=== PATIENT | female | born 1950 | race Caucasian/White ===

== ENCOUNTER → 2021-06-19 | Outpatient (CLI) | payer MEDICARE | END | disposition home or self-care (01) | LOC: LABPAT 09:09 | PROVIDERS: ATTEND Orthopaedic Surgery Orthopaedic Surgery of the Spine | DX: Z01.812 Encounter for preprocedural laboratory examination (principal); M43.10 Spondylolisthesis, site unspecified | CPT/HCPCS: 86850; 86900; 86901; 87070 ==

== ENCOUNTER 2021-07-01 06:22 | Inpatient (IN) | payer MEDICARE ==
[2021-06-27 15:57] VITALS: BMI 29.2
[~2021-07-01 06:22] MED LIST: LIDOCAINE 1% (10MG/ML) FOR IV START INTRADERMA PRN; ceFAZolin 1,000 MG in SODIUM CHLORIDE 0.9% IRRIGATIO 1,000 ML IRRIGATION PRN
[2021-07-01] MEDS ORDERED: ONDANSETRON 4 MG/2 ML VIAL ONE (06:53)
[2021-07-01] MEDS: LACTATED RINGERS 1,000 ML IV SCH (07:00)
[2021-07-01 07:10] LABS: Glucose,Whole Blood 146 mg/dL (75-99)
[2021-07-01] MEDS ORDERED: PROPOFOL 10 MG/ML 20 ML VIAL IV ONE (07:39)
[2021-07-01] MEDS ORDERED: LIDOCAINE 1% INJ 10MG/ML (20 ML MDV) ONE (07:39)
[2021-07-01] MEDS ORDERED: HYDROmorphone (PF) 1 MG/ML ONE (07:39)
[2021-07-01] MEDS ORDERED: fentaNYL (PF) 50 MCG/ML 2 ML AMP ONE (07:39)
[2021-07-01] MEDS ORDERED: NEOSTIGMINE 1 MG/ML 10 ML VIAL ONE (07:39)
[2021-07-01] MEDS ORDERED: ROCURONIUM 10 MG/ML (5 ML VIAL) IV ONE (07:39)
[2021-07-01] MEDS ORDERED: PHENYLEPHRINE-0.9% NACL SYG 1,000 MCG/10 ML SYRINGE ONE (07:39)
[2021-07-01] MEDS ORDERED: HEPARIN SODIUM,PORCINE 10,000 UNIT/ML 1 ML VIAL ONE (07:39)
[2021-07-01] MEDS ORDERED: KETAMINE 10 MG/ML 20 ML VIAL ONE (07:39)
[2021-07-01] MEDS ORDERED: SUCCINYLCHOLINE CHLORIDE 100 MG/5 ML SYR IV ONE (07:39)
[2021-07-01] MEDS ORDERED: GLYCOPYRROLATE 0.2 MG/ML 2 ML VIAL ONE (07:39)
[2021-07-01] MEDS ORDERED: MIDAZOLAM 2 MG/2 ML VIAL ONE (07:39)
[2021-07-01] MEDS ORDERED: SODIUM CHLORIDE 0.9% IRRIG 1,000 ML BTL IRRIGATION ONE (07:39)
[2021-07-01] MEDS ORDERED: GELATIN SPONGE,ABSORB (LARGE) 1 EACH SPONGE MISCELLANE ONE (08:10)
[2021-07-01] MEDS ORDERED: THROMBIN (BOVINE) 5,000 UNIT VIAL TOPICAL ONE (08:11)
[2021-07-01] MEDS ORDERED: BUPIVACAINE (PF) 0.25% 30 ML VIAL SQ ONE ×2 (08:11)
[2021-07-01] MEDS ORDERED: LACTATED RINGERS 1,000 ML IV ONE ×2 (11:28→14:12)
--- NOTE | 2021-07-01 11:37 | FL ---
EXAMINATION TYPE: FL guidance operating room DATE OF EXAM: 07/01/2021 HISTORY: Fluoroscopy time 23 seconds of fluoroscopy provided. IMPRESSION: 1. Fluoroscopy time.
--- NOTE | 2021-07-01 11:38 | XR ---
EXAM TYPE: LUMBAR SPINE X RAY SERIES COMPARISON: NONE HISTORY: Surgical change TECHNIQUE: 2 views are submitted. FINDINGS: Images are limited by resolution. There is postsurgical change involving the lower lumbar spine which appears in near-anatomic alignment. IMPRESSION: 1. Postoperative change
[2021-07-01] MEDS ORDERED: SENNOSIDES-DOCUSATE SODIUM 1 EACH TAB PO PRN (11:52)
[2021-07-01] MEDS ORDERED: ACETAMINOPHEN TAB 325 MG TAB PO PRN (11:52)
[2021-07-01] MEDS ORDERED: MAGNESIUM HYDROXIDE 2,400 MG/10 ML CUP PO PRN ×2 (11:52)
[2021-07-01] MEDS ORDERED: ONDANSETRON 4 MG/2 ML VIAL IVP PRN (11:52)
[2021-07-01] MEDS: HYDROmorphone 0.5 MG/0.5 ML SYRINGE IVP PRN ×6 (12:02→23:02)
--- NOTE | 2021-07-01 12:02 | P.OP ---
Date of Procedure: 07/01/21 Preoperative Diagnosis: Spondylolisthesis L3 4 L4 5, recurrent stenosis L4 5, low back pain, lower extremity radiculopathy, lower extremity weakness, history of lumbar laminectomy L4 5 Postoperative Diagnosis: Same Anesthesia: GETA Pathology: none sent Condition: stable Disposition: PACU Description of Procedure: DESCRIPTION OF PROCEDURE(S): BRIEF OPERATIVE NOTE Preoperative Diagnosis: Spondylolisthesis L3 4 L4 5, recurrent stenosis L4 5, low back pain, lower extremity radiculopathy, lower extremity weakness, history of lumbar laminectomy L4 5, low back pain Postoperative Diagnosis: Same Procedure: Revision Laminectomy and decompression L4 5 Laminectomy decompression L3 [address] navigation aided Minimally invasive Posterior lateral decompression and facet fusion L3 4 and L4 5 Minimally invasive Transforaminal lumbar interbody fusion for a 360 fusion L3 4 L4 5 Discectomy for decompression L3 4 and L4 5 Placement of interbody graft L3 4 and L4 5 Use of computer navigation for fusion L3 4 and 5 Local autogenous bone grafting Aspiration of bone marrow from the vertebral body pedicle at L3 on the right Use of bone graft extenders Surgeon: Dr. Marcos Optical [employer] Silverer: Castro Juarez. who is present throughout the entire the case persistence during positioning, dissection, exposure, visualization, and all crucial elements of the case as well as closure. Anesthesia: General anesthesia per Estimated blood loss: Approximately 350 mL, with 120 given back to Cell Saver Complications: None apparent Components implanted: K2M minimally invasive [place] pedicle screw system withscrews measuring 6.5 mm in diameter to rods one [place] interbody cage along with 1 expandable interbody cage and with 10 mL of osteo amp bio4 bone graft substitute and 30 mL of the BX bone fibers to supplement the local autogenous bone graft and bone marrow aspirate Disposition: To recovery room in good stable condition. OPERATIVE INDICATIONS The patient has had severe issues at their lower extremity in her lower back over the past several years. She had been found have significant and severe stenosis L4 5 in the past underwent laminectomy decompression and discectomy L4 5 with good improvement of her lower extremity symptoms. However over the past year she's been having some increased symptoms at her low back and lower extremities with significant worsening over the past several months. Over the past few months the patient had pain at their back and their lower extremities. The patient is having severe radicular symptoms at their lower extremity with weakness. The patient is having significant pain in their back. They are unable to obtain any comfort. We did aggressive conservative treatment with medications therapy and interventional pain management however thery were not having any relief. The patient also showed evidence of a listhesis with some dynamic instability at both L3 4 and L4 5. She is on to have recurrent stenosis at L4 5 and stenosis L3 4 as well. The patient has been through conservative treatment. We discussed various treatment options including surgery, and the patient wishes to proceed with surgery We discussed the risk, patient's alternatives and benefits of surgery including but not limited to, risk of bleeding risk of infection, risk of need for further surgery, risk of decreased, loss of motion, muscle function, malunion nonunion, hardware failure, nerve damage, paralysis, heart attack, blindness and . They understood issues with the current pandemic and the possibility of exposure. OPERATIVE SUMMARY After discussing all the risks, patient alternatives and benefits at length, the patient elected to proceed with surgical intervention, signed informed consent, and presented for their procedure. The patient was seen and examined in the preoperative holding area and the surgical site was marked. The patient was given antibiotics and brought to the operating room. The patient was sedated and intubated by anesthesia in standard fashion. The patient was positioned on to the operating room table in a prone position on the appropriate frame which was well-padded and well molded. We were careful to pad any bony prominences and pressure points. We were careful to maintain the patient's cervical spine and good neutral alignment and position throughout. The patient was prepped and draped in a normal standard fashion. An appropriate timeout and keystone protocol performed. We were able to proceed with the surgery. The local wound area was infiltrated with local anesthetic. Over the right iliac crest I was able to make small stab incisions and establish a guidepin screw fixation to the iliac crest 2. I was able place the computer referencing device over the guidepins to establish an appropriate reference point for the Ziem CT navigation. We then were able to place patient in an appropriate drape and do a navigation spin for visualization and 3-D reconstruction of the lumbar spine. I was able utilize C-arm guidance and navigation to establish appropriate position over the pedicles bilaterally at the appropriate levels . With the appropriate levels confirmed was able to make small incisions over the appropriate pedicle sites bilaterally at L3 4 and 5. Utilizing the computer navigation device I was able to establish bony landmarks at the right iliac crest for a bony reference point for the navigation device. I was able to establish a Jamshidi needle over the lateral aspect of the pedicle and advanced the trocar into the pedicle being careful not to breech superiorly inferiorly medially or laterally using computer navigation device. Position was confirmed regularly with AP and lateral images on C-arm and with the computer navigation device at the appropriate levels bilaterally. I was able to establish the trocar into the pedicle appropriately into the posterior aspect of the vertebral body bilaterally at the appropriate levels. This was done at each of the pedicle positions and each of the vertebrae at L3 4 and 5. At the superior vertebrae at L3 I was able to take approximately 25 mL of bone aspiration for use later in the case to supplement the allograft and autograft bone. I was able place the guidewire into the trocar and into the vertebral body appropriately under C-arm guidance. Dissection was taken down over the wire to the appropriate starting position for the screw placed. The appropriate length screw was chosen, threaded over the guidewire and screwed appropriately into the pedicle and vertebral body under C-arm guidance in excellent alignment and position with good bony purchase. This is done at each of the screw sites at the appropriate level at L3 4 and 5. With the screws intact I extended the incision to connect the screw hole sites on the most symptomatic side on the left. I dissected down to establish access over the pars and lamina to the base of the spinous process. I was able to expose the facet joint. The capsule the facet was taken down and showed some facet arthrosis at the joint. I was able to use a combination of curettes and Kerrison rongeurs and a high-speed drill to take down the facet joint and do a facetectomy. At L45 I was able to perform a revision decompression. At L3 4 performed a laminectomy decompression. I was able get excellent foraminal decompression and central decompression with undermining across midline to perform a laminectomy centrally and contralaterally. As able get good central decompression. The ligamentum flavum was taken down to further decompress centrally and at bilateral neural foramen. I was able to expose the disc space and visualize the traversing nerve root. Note was made of some disc protrusion and disc herniation that was abutting the traversing nerve root at the level causing further compression of the nerve root. I was able to establish a annulotomy at the appropriate level first at L4 5 than at L3 4 protecting soft tissue and neural structures. Note was made of some disc desiccation at the disc. I performed a complete discectomy with accommodation of curettes and rasps and scrapers. I was able get good endplate preparation at the disc space. I sized for the appropriate size interbody spacer protecting the soft tissue and neural structures. The wound was copiously irrigated and suctioned dry. There is no evidence of any dural tear or leak. I was able to pack the disc space with local autogenous bone graft as well as a small amount of bone graft which was also placed into the interbody cage itself. Protecting the soft tissue structures and neural structures I was able place the interbody cage in good alignment and good position with good fit and fill at the interbody space. Position was confirmed with C-arm guidance. Good hemostasis maintained. There is no evidence of any dural tear or leak. The wound was irrigated and suctioned dry. With the hardware intact, intraoperative C-arm imaging was again taken which showed good alignment and position of the hardware at the appropriate levels at L3 4 and 5. We were then able to measure, contour and place the rods and appropriate hardware bilaterally. I was able to place capcrews, tighten them down, and torque them with the torque screwdriver appropriately. With this intact I was able to place the local autogenous bone graft with additional bone graft enhancer as necessary into the posterior lateral gutters over the decorticated transverse processes and facet joints on the contralateral side. The remainder of the bone graft was placed over the facet joint on the cont ralateral side after taking down the facet joint capsule. With the bone graft intact, a stable construct, and good decompression at the appropriate levels, we were able to proceed with closure. Good hemostasis was maintained. There is no evidence of dural tear or leak. The fascia was closed for a watertight closure. he subcuticular tissue was closed with absorbable suture. The wound was cleaned and dried and dressed with the appropriate dressing. The drapes were broken down. The patient was gently rolled back onto their hospital bed being careful to maintain their cervical spine and good neutral alignment and position. They were woken up by anesthesia, extubated, and brought to the recovery room in good stable condition. The patient will be admitted to the hospital for appropriate postoperative care, medical management and monitoring. We will continue to follow them closely about the postoperative course.
[2021-07-01] MEDS: CYCLOBENZAPRINE 10 MG TAB PO PRN ×2 (16:05→21:53)
[2021-07-01] MEDS: SODIUM CHLORIDE 0.9% 1,000 ML IV SCH (17:25)
[2021-07-01] MEDS: HYDROcodone/APAP 5-325MG 1 EACH TAB PO PRN (20:38)
[2021-07-01] MEDS: ATORVASTATIN 10 MG TAB PO SCH (20:38)
[2021-07-01] MEDS: CIPROFLOXACIN HCL 500 MG TAB PO SCH (20:38)
[2021-07-02] MEDS: HYDROcodone/APAP 5-325MG 1 EACH TAB PO PRN ×5 (01:03→21:49)
[2021-07-02] MEDS: BENZOCAINE/MENTHOL LOZENG 1 EACH LOZENGE MUCOUS MEM PRN ×2 (01:03→09:27)
[2021-07-02] MEDS: SODIUM CHLORIDE 0.9% 1,000 ML IV SCH ×2 (02:10→14:56)
[2021-07-02] MEDS: LACTATED RINGERS 1,000 ML IV SCH (02:11)
[2021-07-02] MEDS: CYCLOBENZAPRINE 10 MG TAB PO PRN ×3 (04:18→21:49)
[2021-07-02] MEDS: LEVOTHYROXINE 50 MCG TAB PO SCH (05:32)
[2021-07-02] MEDS: SENNOSIDES-DOCUSATE SODIUM 1 EACH TAB PO SCH (08:42)
[2021-07-02] MEDS: CIPROFLOXACIN HCL 500 MG TAB PO SCH (08:43)
[2021-07-02] MEDS: ASPIRIN 81 MG PO SCH (08:44)
[2021-07-02 08:52] VITALS: RESP 18
--- NOTE | 2021-07-02 09:27 | P.PN ---
Progress Note - Text Progress Note Date: 07/02/21 Postoperative day #1 Patient is seen and examined today at bedside. The patient has some pain around the surgical site as expected. Pain is being controlled with medication. She had a little bit of nausea yesterday but that seems to be resolving as she was able to tolerate her breakfast this morning. She still has her De Leon in. She says her legs are feeling good but she is having some pain at her back as expected but also at her lower abdomen. Physical Exam Afebrile with stable vital signs Abdomen is soft nontender. Chest has good excursion deep and space expiration The incision site is clean dry and intact. No erythema there is no purulence. The dressing is clear. Extremities have not had neurologic change from prior to surgery. She has sustained dorsal flexion plantar flexion and EHL intact. Calves and thighs were soft nontender without evidence of DVT. Assessment/Plan Postoperative day #1 status post minimally invasive decompression and fusion L3 4 L4 5 for her spondylolisthesis with spinal stenosis and lower extremity radiculopathy Patient is progressing as expected from the surgery. I think that her nausea has resolved as she has been able to tolerate her breakfast well this morning. We will continue to increase the patient's mobilization with therapy. We will remove her De Leon today and start getting her up out of bed. We will continue pain control with oral or IV medications. We'll continue to follow patient closely. Hopefully she'll be okay for increasing her mobilization and potentially going home tomorrow or .
[2021-07-02] MEDS: HYDROmorphone 0.5 MG/0.5 ML SYRINGE IVP PRN ×2 (09:50→16:54)
--- NOTE | 2021-07-02 11:06 | P.CONS ---
History of Present Illness - Reason for Consult Tachycardia - History of Present Illness Patient is a pleasant 71-year-old the female admitted for elective decompression and fusion of L3-4 and L4-5. Patient was passing gas patient is still having significant pain in the back denied any fever chills nausea vomiting patient is on ciprofloxacin received a 6 the doses of Cipro as an outpatient for E. coli urinary tract infection as per the patient. Patient completed this therapy and IV antibiotics will be discontinued. REVIEW OF SYSTEMS: CONSTITUTIONAL: No fever, no malaise, no fatigue. HEENT: No recent visual problems or hearing problems. Denied any sore throat. CARDIOVASCULAR: No chest pain, orthopnea, PND, no palpitations, no syncope. PULMONARY: No shortness of breath, no cough, no hemoptysis. GASTROINTESTINAL: No diarrhea, no nausea, no vomiting, no abdominal pain. NEUROLOGICAL: No headaches, no weakness, no numbness. HEMATOLOGICAL: Denies any bleeding or petechiae. GENITOURINARY: Denies any burning micturition, frequency, or urgency. MUSCULOSKELETAL/RHEUMATOLOGICAL as mentioned in HPI ENDOCRINE: Denies any polyuria or polydipsia. The rest of the 14-point review of systems is negative. PHYSICAL EXAMINATION: GENERAL: The patient is alert and oriented x3, not in any acute distress. Well developed, well nourished. HEENT: Pupils are round and equally reacting to light. EOMI. No scleral icterus. No conjunctival pallor. Normocephalic, atraumatic. No pharyngeal erythema. No thyromegaly. CARDIOVASCULAR: S1 and S2 present. No murmurs, rubs, or gallops. PULMONARY: Chest is clear to auscultation, no wheezing or crackles. ABDOMEN: Soft, nontender, nondistended, normoactive bowel sounds. No palpable organomegaly. MUSCULOSKELETAL: Deferred to orthopedic surgery EXTREMITIES: No cyanosis, clubbing, or pedal edema. NEUROLOGICAL: Gross neurological examination did not reveal any focal deficits. SKIN: No rashes. Assessment and plan -Sinus tach cardia: Seconded to pain will just monitor for now -Hyperthyroidism continue with levothyroxine and TSH will be obtained. -UTI completed antibiotic therapy antiemetics will be discontinued at this time -Lumbar laminectomy and decompression surgery pain management as per primary service DVT prophylaxis: As per primary service Past Medical History Past Medical History: Diabetes Mellitus, Hyperlipidemia, Musculoskeletal Disorder, Osteoarthritis (OA), Thyroid Disorder Additional Past Medical History / Comment(s): [id number] diet History of Any Multi-Drug Resistant Organisms: None Reported Past Surgical History: Back Surgery, Hysterectomy, Orthopedic Surgery, Tonsillectomy Additional Past Surgical History / Comment(s): bunionectomy right big toe, lipoma removed from arm Past Anesthesia/Blood Transfusion Reactions: No Reported Reaction Smoking Status: Never smoker - Past Family History Sister(s) Family Medical History: Deep Vein Thrombosis (DVT) Medications and Allergies Home Medications Medication Instructions Recorded Confirmed Type Acetaminophen [Tylenol] 650 mg PO Q4-6H PRN 06/27/21 06/27/21 History Aspirin 81 mg PO DAILY 06/27/21 06/27/21 History Levothyroxine Sodium [Synthroid] 50 mcg PO DAILY 06/27/21 06/27/21 History [place](Unknown Dose) 1 tab PO BID PRN 06/27/21 History Simvastatin [Zocor] 20 mg PO HS 06/27/21 06/27/21 History Ciprofloxacin HCl [Cipro] 500 mg PO BID 07/01/21 07/01/21 History Allergies Allergy/AdvReac Type Severity Reaction Status Date / Time codeine AdvReac jittery Verified 06/27/21 15:16 Physical Exam Vitals: Vital Signs Temp Pulse Resp BP Pulse Ox 07/02/21 08:00 98.3 F 106 H 18 107/51 91 L 07/02/21 01:20 99.0 F 109 H 107/57 94 L 07/01/21 20:38 95 16 07/01/21 20:03 98.6 F 95 119/60 94 L 07/01/21 16:39 99.3 F 85 16 134/65 94 L 07/01/21 15:28 66 16 125/60 97 07/01/21 15:07 69 16 124/59 96 07/01/21 14:30 54 L 16 122/54 99 07/01/21 14:15 52 L 16 129/63 99 07/01/21 14:00 60 16 124/57 96 07/01/21 13:30 49 L 16 122/58 98 07/01/21 13:15 55 L 16 125/60 98 07/01/21 13:00 50 L 16 116/58 98 07/01/21 12:47 62 16 120/57 98 07/01/21 12:31 46 L 14 105/50 98 07/01/21 12:15 51 L 14 103/51 98 07/01/21 12:00 45 L 14 83/40 98 07/01/21 11:52 97.5 F L 51 L 14 93/52 98 Intake and Output 07/01/21 07/02/21 07/02/21 22:59 06:59 14:59 Output Total 200 1200 Balance -200 -1200 Output: Urine 200 1200 Other: Voiding Method Indwelling Catheter # Bowel Movements 0 Weight 74 kg
[2021-07-02 11:16] LABS: Basophils # (A) 0.01 X 10*3/uL (0.00-0.10); Basophils % (A) 0.2 %; Eosinophils # (A) 0 X 10*3/uL (0.04-0.35); Eosinophils % (A) 0 %; HCT 33.3 % (37.2-46.3); HGB 10.4 g/dL (12.0-15.0); Lymphocytes # (A) 0.98 X 10*3/uL (0.90-5.00); Lymphocytes % (A) 18.7 %; MCH 27.7 pg (27.0-32.0); MCHC 31.2 g/dL (32.0-37.0); MCV 88.6 fL (80.0-97.0); Mean Platelet Volume 11.5 fL (9.5-12.2); Monocytes % (A) 15.2 %; Neutrophils # (A) 3.44 X 10*3/uL (1.80-7.70); Neutrophils % (A) 65.5 %; Platelet Count 136 X 10*3/uL (140-440); RBC 3.76 X 10*6/uL (4.10-5.20); RDW 13.8 % (11.5-14.5); WBC 5.25 X 10*3/uL (4.50-10.00)
[2021-07-02 12:12] LABS: African American GFR (CKD) 85.7 (60.0-200.0); Anion Gap 10.8 mmol/L (4.00-12.00); BUN/Creat Ratio 19.2 Ratio (12.00-20.00); Blood Urea Nitrogen 15.4 mg/dL (9.0-27.0); Calcium 8.4 mg/dL (8.7-10.3); Carbon Dioxide 22.7 mmol/L (21.6-31.8)
[2021-07-02 20:08] LABS: Glucose,Whole Blood 228 mg/dL (75-99)
[2021-07-02] MEDS: ATORVASTATIN 10 MG TAB PO SCH (21:49)
[2021-07-03] MEDS: HYDROmorphone 0.5 MG/0.5 ML SYRINGE IVP PRN ×3 (00:54→09:49)
[2021-07-03] MEDS: BENZOCAINE/MENTHOL LOZENG 1 EACH LOZENGE MUCOUS MEM PRN (01:18)
[2021-07-03] MEDS: HYDROcodone/APAP 5-325MG 1 EACH TAB PO PRN ×5 (02:15→22:29)
[2021-07-03] MEDS: SODIUM CHLORIDE 0.9% 1,000 ML IV SCH ×2 (05:40→14:57)
[2021-07-03] MEDS: LEVOTHYROXINE 50 MCG TAB PO SCH (06:10)
[2021-07-03] MEDS: CYCLOBENZAPRINE 10 MG TAB PO PRN ×3 (06:10→20:48)
[2021-07-03 06:55] LABS: Glucose,Whole Blood 153 mg/dL (75-99)
[2021-07-03] MEDS: SENNOSIDES-DOCUSATE SODIUM 1 EACH TAB PO SCH ×2 (07:02→07:04)
[2021-07-03] MEDS: ASPIRIN 81 MG PO SCH (07:03)
[2021-07-03] MEDS: LACTATED RINGERS 1,000 ML IV SCH (07:05)
[2021-07-03 11:34] LABS: Glucose,Whole Blood 174 mg/dL (75-99)
--- NOTE | 2021-07-03 14:27 | P.PN ---
Progress Note - Text Progress Note Date: 07/03/21 Orthopedic Spine: History of present illness: Patient is a pleasant 71-year-old female who is seen and examined at the bedside following posterior lateral decompression and fusion performed Thursday. Patient states they are doing ok postsurgically. She states she has been able to ambulate to the restroom. She has not been performing much other activities. She has been using a walker even ambulation. She has had difficulty with urination postoperatively. She did have some urinary retention and a De Leon catheter was placed this morning. Patient states she also feels she will need rehab at the time of discharge. She would like to be discharged to [facility]. We'll plan for consultation with social work for discharge planning to a rehabilitation facility in to see if his facility is available. We discussed we will have medicine manage her urinary retention. Currently does not complain of nausea, vomiting, fever, or chills. Patient states pain has been adequately controlled. Patient is eating without difficulty. She does con tinue to have some right-sided lower abdomen/groin pain but states it improves with massaging the area. This pain is not severe. She was treated for urinary tract infection in the outpatient setting as well. Physical Exam Lumbar Fusion: Status post surgical day number 2 Patient is awake, alert, and oriented 3 Vital signs stable Good chest excursion with deep inspiration and expiration Dorsiflexion, plantarflexion, and extensor hallucis longus positive sustained bilaterally No signs or symptoms of DVT; no calf pain; pneumatic cuffs intact bilateral lower extremities Optifoam dressings are clean, dry, and intact over the lumbar spine and right iliac crest; no erythema, purulence, or signs of infection Neurovascularly intact bilaterally lower extremities Assessment: Status post L3-4 and L4-5 minimally invasive posterior lateral decompression and fusion with transforaminal lumbar interbody fusion Low back pain Lower extremity radiculopathy Lower extremity weakness History of lumbar laminectomy Urinary tract infection treated in outpatient setting Urinary retention with De Leon catheter currently placed Hyperlipidemia Plan: 1. Ambulate as tolerated; work with Physical Therapy to increase mobilization 2. Continue pain control with IV and oral medications; will plan to begin weaning the patient off of IV narcotic medication in anticipation for discharge home in the next 1-2 days MAPS has been reviewed today, 09/02/2020, with an Overall Overdose Risk Score of 250. An "Opiod Start Talking" Form has been signed and placed in the patient's chart. A prescription has been written for [place] 5 mg/325 mg 1 tablet every 6 hours as needed for pain, dispensed #28. Patient should avoid anti-inflammatory medications next 6 weeks postoperatively. Patient is also given a prescription for baclofen 10 mg 1 tab 3 times a day as needed for muscle spasm, dispensed #60. These prescriptions have been placed in her chart. 3. Dressings to remain intact with Optifoam; patient may shower with dressings intact 4. Medical management can continue to manage patient for patient's other medical diagnoses including urinary retention 5. We will continue to follow the patient closely; depending on the patient's progress, we may plan for discharge home as early as tomorrow, 07/04/2021, to a rehabilitation facility. Patient is currently requesting [facility]. 6. Patient can follow-up with Chinmay iHnojosa PA-C or Dr. Koko Marcos at [facility] in 2-3 weeks following discharge
--- NOTE | 2021-07-03 15:54 | P.PN ---
Subjective Progress Note Date: 07/03/21 Patient is a pleasant 71-year-old the female admitted for elective decompression and fusion of L3-4 and L4-5. Patient was passing gas patient is still having significant pain in the back denied any fever chills nausea vomiting patient is on ciprofloxacin received a 6 the doses of Cipro as an outpatient for E. coli urinary tract infection as per the patient. Patient completed this therapy and IV antibiotics will be discontinued. 07/03/2021 Patient is resting in bed. She is status post op day #2 decompression and fusion of L3 to 4 and L4 to 5. Patient is passing gas or she's not had a bowel movement yet. She is still having some pain in her back, she denies any fever or chills nausea vomiting. T-max in the last 24 hours is 99.7, heart rate 100 sinus rhythm, blood pressure 139/62 inches 95% room air. Encourage ambulation, encourage incentive spirometry. Plans for discharge to rehab probably tomorrow from orthopedic services. ROS Constitutional: Denied any fatigue denied any fever. Cardio vascular: denied any chest pain, palpitations Gastrointestinal denied any nausea vomiting Pulmonary: Denied any shortness of breath cough Neurologic denied any new focal deficits All inpatient medications were reviewed and appropriate changes in these medications as dictated in the interval history and assessment and plan. PHYSICAL EXAMINATION: GENERAL: The patient is alert and oriented x3, not in any acute distress. Well developed, well nourished. HEENT: Pupils are round and equally reacting to light. EOMI. No scleral icterus. No conjunctival pallor. Normocephalic, atraumatic. No pharyngeal erythema. No thyromegaly. CARDIOVASCULAR: S1 and S2 present. No murmurs, rubs, or gallops. PULMONARY: Chest is clear to auscultation, no wheezing or crackles. ABDOMEN: Soft, nontender, nondistended, normoactive bowel sounds. No palpable organomegaly. MUSCULOSKELETAL: Deferred to orthopedic surgery EXTREMITIES: No cyanosis, clubbing, or pedal edema. NEUROLOGICAL: Gross neurological examination did not reveal any focal deficits. SKIN: No rashes. Assessment and plan -Sinus tachycardia: Seconded to pain will just monitor for now -Hyperthyroidism continue with levothyroxine and TSH will be obtained. -UTI completed antibiotic therapy -Lumbar laminectomy and decompression surgery pain management as per primary service DVT prophylaxis: As per primary service Repeat labs in the morning. Patient can be medically cleared for discharge to rehab once cleared by orthopedics. Objective - Vital Signs Vital signs: Vital Signs Temp 97.7 F 07/03/21 08:00 Pulse 100 07/03/21 08:00 Resp 18 07/03/21 08:00 BP 139/62 07/03/21 08:00 Pulse Ox 95 07/03/21 08:00 Intake & Output 07/02/21 07/03/21 07/03/21 18:59 06:59 18:59 Intake Total 480 Output Total 400 1325 700 Balance 80 -1325 -700 Intake: Oral 480 Output: Urine 400 125 700 Uretheral ([place]) 400 700 Post Void Residual 600 Other 600 Other: Voiding Method Toilet Toilet # Voids 2 # Bowel Movements 0 - Labs CBC & Chem 7: 07/02/21 05:53 07/02/21 05:53 Labs: Abnormal Lab Results - Last 24 Hours (Table) 07/02/21 07/03/21 07/03/21 Range/Units 20:02 06:53 11:32 POC Glucose (mg/dL) 228 H 153 H 174 H (75-99) mg/dL Assessment and Plan Time with Patient: Greater than 30
[2021-07-03 16:43] LABS: Glucose,Whole Blood 170 mg/dL (75-99)
[2021-07-03] MEDS ORDERED: TAMSULOSIN 0.4 MG CAP.ER.24H PO SCH (18:30)
[2021-07-03 20:29] LABS: Glucose,Whole Blood 241 mg/dL (75-99)
[2021-07-03] MEDS: ATORVASTATIN 10 MG TAB PO SCH (20:48)
[2021-07-04] MEDS: HYDROcodone/APAP 5-325MG 1 EACH TAB PO PRN ×3 (02:28→14:50)
[2021-07-04] MEDS: LEVOTHYROXINE 50 MCG TAB PO SCH (05:48)
[2021-07-04 06:12] LABS: African American GFR (CKD) >90 (>60 ml/min/1.73 sqM); Anion Gap 4 mmol/L; Blood Urea Nitrogen 12 mg/dL (7-17); Calcium 8.7 mg/dL (8.4-10.2); Carbon Dioxide 25 mmol/L (22-30); Chloride 106 mmol/L (98-107); Glucose 147 mg/dL (74-99); Non-African American GFR(CKD) >90 (>60 ml/min/1.73 sqM); Potassium 3.6 mmol/L (3.5-5.1); Sodium 135 mmol/L (137-145)
[2021-07-04 07:13] LABS: Glucose,Whole Blood 140 mg/dL (75-99)
[2021-07-04] MEDS ORDERED: Potassium Replacement Protocol 1 EACH MISC MISCELLANE PRN (07:28)
[2021-07-04] MEDS ORDERED: POTASSIUM CHLORIDE ER 20 MEQ TAB.ER PO SCH (08:00)
[2021-07-04 08:15] VITALS: BP 173/75; PULSE 115; TEMP 98.1
[2021-07-04] MEDS: LACTATED RINGERS 1,000 ML IV SCH (08:48)
[2021-07-04] MEDS: SODIUM CHLORIDE 0.9% 1,000 ML IV SCH (08:48)
[2021-07-04] MEDS: SENNOSIDES-DOCUSATE SODIUM 1 EACH TAB PO SCH (08:51)
[2021-07-04] MEDS: CYCLOBENZAPRINE 10 MG TAB PO PRN (08:51)
[2021-07-04] MEDS: ASPIRIN 81 MG PO SCH (08:52)
[2021-07-04 09:35] LABS: Basophils # (A) 0.02 X 10*3/uL (0.00-0.10); Basophils % (A) 0.4 %; Eosinophils # (A) 0.07 X 10*3/uL (0.04-0.35); Eosinophils % (A) 1.4 %; HCT 29.3 % (37.2-46.3); HGB 9.4 g/dL (12.0-15.0); Lymphocytes # (A) 1.45 X 10*3/uL (0.90-5.00); Lymphocytes % (A) 29.1 %; MCH 27.5 pg (27.0-32.0); MCHC 32.1 g/dL (32.0-37.0); MCV 85.7 fL (80.0-97.0); Mean Platelet Volume 11.6 fL (9.5-12.2); Monocytes # (A) 0.48 X 10*3/uL (0.20-1.00); Monocytes % (A) 9.6 %; Neutrophils # (A) 2.95 X 10*3/uL (1.80-7.70); Neutrophils % (A) 59.1 %; Platelet Count 146 X 10*3/uL (140-440); RBC 3.42 X 10*6/uL (4.10-5.20); RDW 13.7 % (11.5-14.5); WBC 4.99 X 10*3/uL (4.50-10.00)
--- NOTE | 2021-07-04 10:47 | P.DS ---
Providers Date of admission: 07/03/21 08:30 Attending physician: Yakelin Marcos Consults: 07/01/21 11:52 Consult Physician Routine Consulting Provider: Mike Rosales Consult Reason/Comments: Medical management Do you want consulting provider notified?: Yes Primary care physician: Ani Bauer, [facility] Hospital Course: The patient presented on the day of admission as per their operative note. She had spondylolisthesis with significant stenosis L3 4 L4 5 and underwent minimally invasive decompression fusion as per operative note. She is making steady progress postoperatively. She has been able to void and she is tolerating her diet. She is passing gas well and feels that she will have a bowel movement. She still having pain at her back particularly when changing positions which is expected. Physical Exam The incision site is clean dry and intact. There is no erythema no drainage. There is no purulence no evidence of infection. The dressings at her low back are clear without any evidence of drainage or bleeding. Abdomen soft and nontender. Chest has good excursion with deep inspiration and expiration. The patient has active and passive range of motion intact at the upper and lower extremities. There is no acute change in neurologic status. She has sustained dorsal flexion and flexion and extensor hallucis longus intact. Nontender. Hospital Course Postoperative day #3 status post minimally invasive decompression fusion L3 4 L4 5 for her spondylolisthesis with spinal stenosis and lower extremity radiculopathy The patient has been making good progress postoperatively. She had been moving somewhat slowly but she is making good progress today. She is voiding freely. They have completed the prophylactic antibiotics without any signs or symptoms of infection. The patient has been able to advance their diet, and is tolerating diet adequately. The pain was initially controlled with IV medications and is now controlled appropriately with oral medications. The patient has been able to increase their mobilization. The patient has progressed appropriately. I think they are in good stable condition for discharge today to group home facility. They're trying to arrange for [place] but there is limited availability and they may consider [place] as well. They will be sent home with appropriate prescriptions. I spoke with her over the phone as well. May had some concerns in regards to the patient missing out on therapy yesterday. She had been in too much pain when she was visited by the therapist and it was not able to return later. She is making good progress today with therapy despite this. I answered their questions to the best of my ability in a language that they can understand and they are agreeable with the plan. They will follow up as directed. Patient Condition at Discharge: Good Plan - Discharge Summary Discharge Rx Participant: No New Discharge Prescriptions: New Baclofen 10 mg PO TID PRN #60 tab PRN Reason: Spasms HYDROcodone/APAP 5-325MG [[place] 5] 1 each PO Q6HR PRN #28 tab PRN Reason: Pain No Action Simvastatin [Zocor] 20 mg PO HS Acetaminophen [Tylenol] 650 mg PO Q4-6H PRN PRN Reason: Pain Ciprofloxacin HCl [Cipro] 500 mg PO BID Levothyroxine Sodium [Synthroid] 50 mcg PO DAILY Aspirin 81 mg PO DAILY [place](Unknown Dose) 1 tab PO BID PRN PRN Reason: Pain Discharge Medication List Acetaminophen [Tylenol] 650 mg PO Q4-6H PRN 06/27/21 [History] Aspirin 81 mg PO DAILY 06/27/21 [History] Levothyroxine Sodium [Synthroid] 50 mcg PO DAILY 06/27/21 [History] [place](Unknown Dose) 1 tab PO BID PRN 06/27/21 [History] Simvastatin [Zocor] 20 mg PO HS 06/27/21 [History] Ciprofloxacin HCl [Cipro] 500 mg PO BID 07/01/21 [History] Baclofen 10 mg PO TID PRN #60 tab 07/03/21 [Rx] HYDROcodone/APAP 5-325MG [[place] 5] 1 each PO Q6HR PRN #28 tab 07/03/21 [Rx] Follow up Appointment(s)/Referral(s): Ani Bauer, [facility] [Primary Care Provider] - 1 Week Yakelin Marcos DO [Doctor of Osteopathic Medicine] - 07/16/21 2:00 pm Activity/Diet/Wound Care/Special Instructions: Keep site clean. May shower with waterproof Optifoam intact. Do not soak in a tub. After 72 hours postoperatively, patient May remove dressing and then may shower with area uncovered. Leave glue intact and allow it to fray off on its own. May ambulate as tolerated. Avoid heavy or rigorous activity. No repetitive bending twisting or lifting. No overhead work. Discharge Disposition: TRANSFER TO SNF/ECF
[2021-07-04 11:31] LABS: Glucose,Whole Blood 223 mg/dL (75-99)
--- NOTE | 2021-07-04 13:50 | P.PN ---
Subjective Progress Note Date: 07/04/21 Patient is a pleasant 71-year-old the female admitted for elective decompression and fusion of L3-4 and L4-5. Patient was passing gas patient is still having significant pain in the back denied any fever chills nausea vomiting patient is on ciprofloxacin received a 6 the doses of Cipro as an outpatient for E. coli urinary tract infection as per the patient. Patient completed this therapy and IV antibiotics will be discontinued. 07/03/2021 Patient is resting in bed. She is status post op day #2 decompression and fusion of L3 to 4 and L4 to 5. Patient is passing gas or she's not had a bowel movement yet. She is still having some pain in her back, she denies any fever or chills nausea vomiting. T-max in the last 24 hours is 99.7, heart rate 100 sinus rhythm, blood pressure 139/62 inches 95% room air. Encourage ambulation, encourage incentive spirometry. Plans for discharge to rehab probably tomorrow from orthopedic services. 07/04/2021 Patient evaluated today sitting in the chair. She states that she did have a bowel movement status post surgery. Urinary catheter was removed this morning and she is not retaining urine. She does have back pain. She is status postoperative day #3 decompression and fusion L3 to L4 and L4 to L5. Plan today is to go to rehab. Labs are unremarkable, TSH normal 1.020. Patient is still mildly tachycardia at 115, blood pressure 173/75 she is 93% on room air. We did add patient on Toprol-XL 12.5 mg by mouth daily, first dose now. Recheck blood pressure and heart rate. ROS Constitutional: Denied any fatigue denied any fever. Cardio vascular: denied any chest pain, palpitations Gastrointestinal denied any nausea vomiting Pulmonary: Denied any shortness of breath cough Neurologic denied any new focal deficits All inpatient medications were reviewed and appropriate changes in these medications as dictated in the interval history and assessment and plan. PHYSICAL EXAMINATION: GENERAL: The patient is alert and oriented x3, not in any acute distress. Well developed, well nourished. HEENT: Pupils are round and equally reacting to light. EOMI. No scleral icterus. No conjunctival pallor. Normocephalic, atraumatic. No pharyngeal erythema. No thyromegaly. CARDIOVASCULAR: S1 and S2 present. No murmurs, rubs, or gallops. PULMONARY: Chest is clear to auscultation, no wheezing or crackles. ABDOMEN: Soft, nontender, nondistended, normoactive bowel sounds. No palpable organomegaly. MUSCULOSKELETAL: Deferred to orthopedic surgery EXTREMITIES: No cyanosis, clubbing, or pedal edema. NEUROLOGICAL: Gross neurological examination did not reveal any focal deficits. SKIN: No rashes. Assessment and plan -Sinus tachycardia: Probably secondary to pain, we did start patient on a low dose of Toprol-XL 12.5 mg by mouth daily -Hypertension, could be due to pain, we decided patient would also Toprol-XL 12.5 mg po daily -Hyperthyroidism continue with levothyroxine, TSH within normal with a 1.020 -UTI completed antibiotic therapy -POD #3 Lumbar laminectomy and decompression surgery pain management as per primary service DVT prophylaxis: As per primary service Patient is cleared medically for discharge to rehab. Please give first dose of Toprol-XL now and recheck blood pressure and heart rate. Patient may not need this medication in the future, monitor for signs of bradycardia. If blood pressure normalizes this can be discontinued outpatient. Objective - Vital Signs Vital signs: Vital Signs Temp 98.1 F 07/04/21 08:00 Pulse 115 H 07/04/21 09:20 Resp 18 07/04/21 09:20 BP 173/75 07/04/21 08:00 Pulse Ox 93 L 07/04/21 08:00 Intake & Output 07/03/21 07/04/21 07/04/21 18:59 06:59 18:59 Output Total 1800 1850 200 Balance -1800 -1850 -200 Output: Urine 1800 1850 200 Uretheral ([place]) 700 300 Other: Voiding Method Toilet Toilet # Voids 1 - Labs CBC & Chem 7: 07/04/21 05:34 07/04/21 05:34 Labs: Abnormal Lab Results - Last 24 Hours (Table) 07/03/21 07/03/21 07/04/21 Range/Units 16:42 20:27 05:34 RBC (4.10-5.20) X 10*6/uL Hgb (12.0-15.0) g/dL Hct (37.2-46.3) % Sodium 135 L (137-145) mmol/L Glucose 147 H (74-99) mg/dL POC Glucose (mg/dL) 170 H 241 H (75-99) mg/dL 07/04/21 07/04/21 07/04/21 Range/Units 05:34 07:08 11:28 RBC 3.42 L (4.10-5.20) X 10*6/uL Hgb 9.4 L (12.0-15.0) g/dL Hct 29.3 L (37.2-46.3) % Sodium (137-145) mmol/L Glucose (74-99) mg/dL POC Glucose (mg/dL) 140 H 223 H (75-99) mg/dL Assessment and Plan Time with Patient: Greater than 30
[2021-07-04] MEDS ORDERED: METOPROLOL SUCCINATE (ER) 25 MG TAB.ER.24H PO SCH (14:00)
== END 2021-07-04 15:18 | DRG 454 ==
LOC: 2ORMAIN 06:22 → INTOOBSV 06:22 → 4SSUR 15:30 → OBSVTOIN 07-03 08:30
PROVIDERS: ADMIT Orthopaedic Surgery Orthopaedic Surgery of the Spine; ATTEND Orthopaedic Surgery Orthopaedic Surgery of the Spine
PROC: 0SG10AJ Fusion of 2 or more Lumbar Vertebral Joints with Interbody Fusion Device, Posterior Approach, Anterior Column, Open Approach (ICD-10-PCS; principal; 2021-07-03)
PROC: 0SG1071 Fusion of 2 or more Lumbar Vertebral Joints with Autologous Tissue Substitute, Posterior Approach, Posterior Column, Open Approach (ICD-10-PCS; 2021-07-03)
PROC: 01NB0ZZ Release Lumbar Nerve, Open Approach (ICD-10-PCS; 2021-07-03)
PROC: 00NY0ZZ Release Lumbar Spinal Cord, Open Approach (ICD-10-PCS; 2021-07-03)
PROC: 0ST20ZZ Resection of Lumbar Vertebral Disc, Open Approach (ICD-10-PCS; 2021-07-03)
PROC: 01NB0ZZ Release Lumbar Nerve, Open Approach (ICD-10-PCS; 2021-07-03)
PROC: 07DS3ZZ Extraction of Vertebral Bone Marrow, Percutaneous Approach (ICD-10-PCS; 2021-07-03)
DX: M43.16 Spondylolisthesis, lumbar region (principal); N39.0 Urinary tract infection, site not specified; M48.061 Spinal stenosis, lumbar region without neurogenic claudication; M54.16 Radiculopathy, lumbar region; E05.90 Thyrotoxicosis, unspecified without thyrotoxic crisis or storm; E11.9 Type 2 diabetes mellitus without complications; Z20.822 Contact with and (suspected) exposure to COVID-19; E78.5 Hyperlipidemia, unspecified; I10 Essential (primary) hypertension; Z79.82 Long term (current) use of aspirin; Z79.890 Hormone replacement therapy; Z90.710 Acquired absence of both cervix and uterus; M19.90 Unspecified osteoarthritis, unspecified site; R73.03 Prediabetes
CPT/HCPCS: 72100; 80048; 84443; 85025; 86850; 86891; 86900; 86901; 87070; 87635